=== PATIENT | male | born 1980 | race Caucasian/White ===

== ENCOUNTER 2024-09-30 02:15 | Observation (INO) | payer BC ==
[2024-09-30 04:01] VITALS: BMI 40.1
[2024-09-30] MEDS ORDERED: Ondansetron PF 4 MG/2 ML Vial IVP PRN (05:25)
[2024-09-30] MEDS ORDERED: Calcium Carbonate 500 MG ChewTAB PO PRN (05:25)
[2024-09-30] MEDS ORDERED: Acetaminophen 650 MG Suppository PR PRN (05:25)
[2024-09-30] MEDS ORDERED: Acetaminophen 325 MG TAB PO PRN (05:25)
[2024-09-30] MEDS ORDERED: Ondansetron ODT 4 MG TAB PO PRN (05:25)
[2024-09-30] MEDS ORDERED: Nitroglycerin 0.4 MG TAB (25 Tab Bottle) SL PRN (08:59)
[2024-09-30] MEDS ORDERED: Iopamidol 370 76% 100 ML VIAL ONE (09:35)
[2024-09-30] MEDS: Aspirin Chewable 81 MG TAB PO SCH (10:44)
[2024-09-30 11:53] LABS: Hemoglobin A1c 5.4 % (4.0-6.0)
[2024-09-30] MEDS ORDERED: Nitroglycerin 50 MG/250 ML BOT 250 ML ONE (11:53)
[2024-09-30] MEDS ORDERED: Atropine Sulfate 1 mg/10 ml Syringe ONE (11:53)
[2024-09-30] MEDS ORDERED: Heparin 10,000 UNITS/ 10 ML VIAL ONE ×2 (11:53→13:35)
[2024-09-30] MEDS ORDERED: Verapamil 5 MG/2 ML VIAL ONE (11:53)
[2024-09-30] MEDS ORDERED: EPINEPHrine 1 MG/10 ML Abboject SYRINGE ONE (11:53)
[2024-09-30] MEDS ORDERED: PHENYLEPHRINE-NS 100 MCG/ML 10 ML SYRINGE ONE (11:53)
[2024-09-30] MEDS ORDERED: Midazolam HCl 2 mg/2 ml Vial ONE (12:51)
[2024-09-30] MEDS ORDERED: fentaNYL 50 mcg/mL 1 mL Vial ONE (12:51)
[2024-09-30] MEDS ORDERED: Adenosine 6 mg (2 mL) VIAL ONE (13:36)
[2024-09-30] MEDS ORDERED: TICAGRELOR 90 MG TABLET ONE (14:00)
[2024-09-30] MEDS: Nitroglycerin 2% Ointment 1 INCH/1 GM Packet TOP SCH (14:43)
[2024-09-30] MEDS: Sodium Chloride 0.9% 1,000 ML IV SCH (15:30)
[2024-09-30] MEDS: TICAGRELOR 90 MG TABLET PO SCH (21:36)
[2024-10-01 05:04] LABS: #Basophils 0.03 10x3/uL (0.0-0.2); %Basophils 0.2 % (0.0-1.0); %Lymphocytes 20.5 % (21.0-51.0); %Monocytes 10.3 % (0.0-10.0); %Neutrophils 67.4 % (42.0-75.0); Hematocrit 50.6 % (42.0-52.0); Hemoglobin 16.4 g/dL (14.0-18.0); Mean Corpuscular HGB CONC 32.4 g/dL (32.0-36.0); Mean Corpuscular Hemoglobin 27.2 pg (27.0-31.0); Mean Corpuscular Volume 84.1 fL (78.0-98.0); Mean Platelet Volume 9.3 fL (7.4-10.4); Platelet Count 230 10x3/uL (130-400); RBC Distribution Width 14.2 % (11.5-14.5); Red Blood Cell (RBC) Count 6.02 mill/uL (4.70-6.10)
[2024-10-01 05:38] LABS: ALT (SGPT) 31 U/L (Less than 45); AST (SGOT) 55 U/L (11-34); Albumin 3.9 g/dL (3.1-4.5); Alkaline Phosphatase 58 U/L (40-110); Anion Gap 12 mmol/L (10-20); BUN (Urea Nitrogen) 11 mg/dL (8.9-20.6); Bilirubin, Total 0.9 mg/dL (0.3-1.2); Calc. Creatinine Clearance 171 mL/min (70-130); Calcium 8.9 mg/dL (7.8-10.44); Carbon Dioxide 23 mmol/L (22-29); Cardiac Risk 6.3 (Less than 4.5); Chloride 106 mmol/L (98-107); Cholesterol 164 mg/dl (< 200 Desired); Estimated GFR 99; Glucose 90 mg/dL (70-105); HDL Cholesterol 26 mg/dL (>60 Neg Risk); LDL Cholesterol, Calculated 105 mg/dL; Potassium 4.4 mmol/L (3.5-5.1); Protein, Total 6.9 g/dL (6.0-8.3); Sodium 137 mmol/L (136-145); Triglycerides 165 mg/dL (Less than 150)
[2024-10-01 08:17] VITALS: BP 116/71; TEMP 98.2
[2024-10-01] MEDS: Metoprolol Succinate XL 25 MG ER.TAB PO SCH (08:28)
[2024-10-01] MEDS: Aspirin Chewable 81 MG TAB PO SCH (08:28)
[2024-10-01] MEDS ORDERED: Aspirin Chewable 81 MG TAB PO SCH (09:00)
[2024-10-01] MEDS ORDERED: Atorvastatin Calcium 40 MG TAB PO SCH (21:00)
== END 2024-10-01 11:36 | disposition home or self-care (01) ==
LOC: OBS 03:16
PROVIDERS: ADMIT Student in an Organized Health Care Education/Training Program; ATTEND Family Medicine
DX: I24.9 Acute ischemic heart disease, unspecified (principal)
CPT/HCPCS: 36415; 71045; 80053; 80061; 81001; 83036; 84443; 84484; 85025; 85347; 92928; 93005; 93010; 93458; 94760; 96372; 97139; 99152; 99153; C1769; C1874; C1876; C1887; C1894; C9600; G0378; J0153; J0171; J0461; J1644; J1650; J2250; J3010; J7030